=== PATIENT | male | born 1980 | race Two or more races ===

== ENCOUNTER 2025-02-17 13:24 | Emergency (ER) | payer MEDICAID, OTHER ==
[~2025-02-17] VITALS: Ht 172.7 cm; Wt 93.2 kg
[2025-02-17 14:31] LABS: Basophils # (auto) 0.1 10 ^3/uL (0-0.2); Basophils % (auto) 0.6 % (0.0-2.0); Eosinophils # (auto) 0.1 10 ^3/uL (0-0.8); Eosinophils % (auto) 1.3 % (0.0-7.0); Hematocrit 50.7 % (41.0-53.0); Hemoglobin 17.1 g/dL (13.5-17.5); Lymphocytes % (auto) 24.3 % (10.0-50.0); Mean Corpuscular Hemoglobin 29.8 pg (28.0-32.0); Mean Corpuscular Hgb Conc. 33.7 g/dL (32.0-36.0); Mean Corpuscular Volume 88.5 fL (80.0-100.0); Monocytes # (auto) 0.7 10 ^3/uL (0-1.3); Monocytes % (auto) 8.4 % (0.0-12.0); Neutrophils # (auto) 5.3 10 ^3/uL (1.6-8.6); Neutrophils % (auto) 65.4 % (37.0-80.0); Nucleated Red Blood Cells % 0.2 %; Platelet Count (auto) 260 10^3/uL (140-450); Red Blood Cells 5.73 10^6/uL (4.5-5.90); White Blood Cell 8.1 10^3/uL (4.4-10.8)
[2025-02-17 14:45] LABS: Chloride 104 mmol/L (98-107); Potassium 3.8 mmol/L (3.5-5.1); Sodium 139 mmol/L (136-145)
[2025-02-17 14:46] LABS: Anion Gap 11 (5-15); Calcium 9.7 mg/dL (8.7-10.4); Carbon Dioxide 24 mmol/L (20-31)
[2025-02-17 14:51] LABS: BUN/Creatinine Ratio 16.7 (10.0-20.0); Blood Urea Nitrogen 12 mg/dL (9-23); Glucose 180 mg/dL (74-106)
--- NOTE | 2025-02-17 14:58 | ED.PDOC ---
History of Present Illness HPI Comments Mr. Foster, 44-year-old gentleman with past medical history significant for grade 1 obesity, type 2 diabetes mellitus on oral diabetic treatment comes to the ER after a mechanical fall when he tripped this morning while at work and fell down on asphalt with extended left wrist with direct impact having all weight temporarily supported by the rest causing excruciating pain. Patient eventually fell down on the right side of the face that caused mild low laceration on the right lower lip, right nostril has mild epistaxis total blood loss not exiting more than 4 oz roughly. Patient came to the ED dietary from work for pain management and further workup. The patient denies any violence, trauma, similar previous fall, lightheadedness, dizziness, loss of consciousness, nausea, vomiting, headache, bleeding diathesis, or any other focal neurological deficit. The time of presentation patient has 10/10 localized pain with mild swelling and deformity on the left wrist and crusted well healed non actively bleeding lacerations. Past medical history: Grade 1 obesity, type 2 diabetes mellitus. Past surgical history: Denies. Allergies: NKDA, nonallergic to diets. Social history: Denies active smoking, alcohol consumption, or any recreational drugs. Lives at home with family. 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 Medications: Metformin, glipizide that he can remember on the top of his head. PCP: Dr. Rodriguez Comments Mechanical fall, trauma, superficial skin laceration and injury to left wrist. Time Seen by MD: 13:39 Primary Care Provider: Dr. Rodriguez Reviewed Notes: Nurses Notes, Medications, Allergies Allergies: Coded Allergies: NO KNOWN ALLERGIES (Unverified , 02/17/25) Information Source: Patient Mode of Arrival: Ambulatory Severity: Moderate Timing: Minutes Duration: Since onset, Minutes Prehospital treatment: None Past Medical History PAST MEDICAL HISTORY: DM Past Medical History (Other): As above Surgical History (Other): As above Family History Family History (Other): As above, noncontributory Social History Smoker: Non-Smoker Alcohol: Denies ETOH Use Drugs: Denies Drug Use Lives In: Home Constitutional: denies: chills, diaphoresis, fatigue, fever, malaise, sweats, weakness, others EENTM: reports: nose bleeding, others (Mild right twyla facial swelling without any focal neurological deficits); denies: blurred vision, double vision, ear bleeding, ear discharge, ear drainage, ear pain, ear ringing, eye pain, eye redness, hearing loss, mouth pain, mouth swelling, nasal discharge, nose congestion, nose pain, photophobia, tearing, throat pain, throat swelling, voice changes Respiratory: denies: cough, hemoptysis, orthopnea, SOB at rest, shortness of breath, SOB with excertion, stridor, wheezing, others Cardiovascular: denies: chest pain, dizzy spells, diaphoresis, Dyspnea on exertion, edema, irregular heart beat, left arm pain, lightheadedness, palpitat ions, PND, syncope, others Gastrointestinal: denies: abdomen distended, abdominal pain, blood streaked bow els, constipated, diarrhea, dysphagia, difficulty swallowing, hematemesis, melena, nausea, poor appetite, poor fluid intake, rectal bleeding, rectal pain, vomiting, others Genitourinary: denies: burning, dysuria, flank pain, frequency, hematuria, incontinence, penile discharge, penile sore, pain, testicle pain, testicle swelling, urgency, others Neurological: denies: dizziness, fainting, headache, left sided numbness, left sided weakness, numbness, paresthesia, pre-existing deficit, right sided numbness, right sided weakness, seizure, speech problems, tingling, tremors, weakness, others Integumetry: reports: bruises, laceration, wounds; denies: change in color, change in hair/nails, dryness, lesions, lumps, rash, others Allergic/Immunocompromised: denies: Difficulty Healing, Frequent Infections, Hives, Itching, others Hematologic/Lymphatic: denies: anemia, blood clots, easy bleeding, easy bruising, swollen glands, others Endocrine: denies: excessive hunger, excessive sweating, excessive thirst, excessive urination, flushing, intolerance to cold, intolerance to heat, un explained weight gain, unexplained weight loss, others Psychiatric: denies: anxiety, bipolar disorder, depression, hopeless, panic disorder, schizophrenia, sleepless, suicidal, others Physical Exam General Appearance: Mild Distress HEENT: Other (Right lower lip mild laceration well healed, well-formed scab noted. Right nostril has some blood tinges, dried blood but no active bleeding noted. Mild facial edema without redness or tenderness locally.) Neck: Full Range of Motion, Non-Tender, Normal Inspection, Supple Respiratory: Lungs Clear, No Accessory Muscle Use, No Respiratory Distress, Normal Breath Sounds Cardiovascular: No Edema, No Murmur, No Gallop, Normal Peripheral Pulses, Regular Rate/Rhythm Breast Exam: Deferred Gastrointestinal: No Organomegaly, Non Tender (Off starting), Normal Bowel Sounds Genitalia: Deferred Pelvic: Deferred Rectal: Deferred Extremities: Other (Tenderness to the right wrist, loss of range of motion but no distal or proximal to the lesion any neurovascular compromise noted.) Neurologic: Alert, 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 Was a procedure done?: Yes Sedation Sedation?: No Informed consent obtained: Yes Sedation provider statement: As per documentation of Dr. Leong for reduction and splint application. Differential Dx Considerations may include: Mechanical fall, facial trauma, blunt injury to the bilateral upper extremity, wrist fracture of the left side, laceration of the lower lip, epistaxis secondary due to injury, mild blood loss anemia, polytrauma, neurovascular compromise yet to rule out, styloid fracture X-Ray, Labs, Meds, VS Vital Signs Date Time Temp Pulse Resp B/P (MAP) Pulse Ox O2 Delivery O2 Flow Rate FiO2 02/17/25 16:36 98.3 106 20 129/91 (104) 95 98.3 Lab Test 02/17/25 14:23 Range/Units White Blood Count 8.1 4.4-10.8 10^3/uL Red Blood Count 5.73 4.5-5.90 10^6/uL Hemoglobin 17.1 13.5-17.5 g/dL Hematocrit 50.7 41.0-53.0 % Mean Corpuscular Volume 88.5 80.0-100.0 fL Mean Corpuscular Hemoglobin 29.8 28.0-32.0 pg Mean Corpuscular Hemoglobin Concent 33.7 32.0-36.0 g/dL Red Cell Distribution Width 13.0 11.8-14.3 % Platelet Count 260 140-450 10^3/uL Mean Platelet Volume 7.1 6.9-10.8 fL Neutrophils (%) (Auto) 65.4 37.0-80.0 % Lymphocytes (%) (Auto) 24.3 10.0-50.0 % Monocytes (%) (Auto) 8.4 0.0-12.0 % Eosinophils (%) (Auto) 1.3 0.0-7.0 % Basophils (%) (Auto) 0.6 0.0-2.0 % Neutrophils # (Auto) 5.3 1.6-8.6 10 ^3/uL Lymphocytes # (Auto) 2.0 0.4-5.4 10 ^3/uL Monocytes # (Auto) 0.7 0-1.3 10 ^3/uL Eosinophils # (Auto) 0.1 0-0.8 10 ^3/uL Basophils # (Auto) 0.1 0-0.2 10 ^3/uL Nucleated Red Blood Cells 0.2 % Sodium Level 139 136-145 mmol/L Potassium Level 3.8 3.5-5.1 mmol/L Chloride Level 104 98-107 mmol/L Carbon Dioxide Level 24 20-31 mmol/L Anion Gap 11 5-15 Blood Urea Nitrogen 12 9-23 mg/dL Creatinine 0.72 0.700-1.30 mg/dL Glomerular Filtration Rate Calc 116 >90 mL/min BUN/Creatinine Ratio 16.7 10.0-20.0 Serum Glucose 180 H 74-106 mg/dL Calcium Level 9.7 8.7-10.4 mg/dL Total Bilirubin 0.6 0.2-1.0 mg/dL Direct Bilirubin 0.2 <0.3 mg/dL Aspartate Amino Transferase (AST) 18 13-40 U/L Alanine Aminotransferase (ALT) 22 7-40 U/L Alkaline Phosphatase 66 46-116 U/L Total Protein 8.1 5.7-8.2 g/dL Albumin 5.0 H 3.2-4.8 g/dL Images Reviewed?: Images reviewed and evaluated by me Time of 1ST Reevaluation: 15:39 Reevaluation 1ST: Unchanged (Labs unremarkable, no neuro vascular changes. Still has 10/10 pain.) Time of 2ND Reevaluation: 17:26 Reevaluation 2ND: Unchanged (Patient is decided to proceed with closed reduction, with local anesthesia optimum pain management, repeat x-ray and close follow up with the outpatient orthopedics.) Time of 3RD Reevaluation: 17:57 Reevaluation 3RD: Resolved (Pain improved, local infiltrative anesthesia and nerve block with reduction and stabilization done. Red flags and warning signs of neurovascular compromise discussed. Referred to the outpatient orthopedics with Dr. Mckenzie. Short course of analgesics prescribed. Discussed with Dr. Leong.) Consultation: PCP, Other (Orthopedics Dr. Knapp) Patient Education/Counseling: Diagnosis, Treatment, Prognosis, Need For Follow Up Family Education/Counseling: No Family Present Departure 1 Departure Time of Disposition: 18:04 Impression: Primary Impression: Fall against object Additional Impressions: Blunt injury Left wrist fracture Qualified Codes: S62.102A - Fracture of unspecified carpal bone, left wrist, initial encounter for closed fracture Left wrist injury Qualified Codes: S69.92XA - Unspecified injury of left wrist, hand and fin osiel(s), initial encounter Left wrist pain Disposition: 01 HOME / SELF CARE / HOMELESS Condition: Fair Referrals Dr. Saeed orthopedics Referrals: ZI KNAPP MD Additional Instructions: Please follow up with the PCP within 1 week of ED visit and please follow up with Orthopedics closely. As needed pain control. Discussed with Dr. Leong Discharged With: Self Critical Care Note Critical Care Time?: No Stability Stability form required: MAXINE Albarran RESIDENT Feb 17, 2025 14:58
--- NOTE | 2025-02-17 15:27 | DVH ---
CLINICAL INDICATION: fall and trauma TECHNIQUE: XY L WRIST 3+ VIEW XRAY Comparison: None FINDINGS/IMPRESSION: : Displaced and comminuted fracture of the distal radial metaphysis. Displaced fracture of the styloid process of the ulna. Diffuse soft-tissue swelling of the distal forearm.
[2025-02-17 15:41] LABS: Bilirubin, Direct 0.2 mg/dL (<0.3); Bilirubin, Total 0.6 mg/dL (0.2-1.0); Total Protein 8.1 g/dL (5.7-8.2)
[2025-02-17] MEDS ORDERED: OXYC-900 PO (17:49)
[2025-02-17] MEDS: TETANUS-DIPTH-ACEL PERTUSSIS 0.5ML SYR Tdap IM ONE (18:14)
[2025-02-17] MEDS: KETOROLAC TROMETH 30 MG/ML 1ML VIAL IM ONE (18:15)
[2025-02-17] MEDS: HYDROcodone-ACET 10/325MG TAB PO ONE (18:16)
[2025-02-17] MEDS: LIDOCAINE 1% HCL (LOCAL ANESTH.) INJ 20ML MDV IJ ONE (18:16)
--- NOTE | 2025-02-17 18:32 | DVH ---
CLINICAL INDICATION: reduction follow up TECHNIQUE: 3 radiographic views of the left wrist were obtained. Comparison: XY L WRIST 3+ VIEW XRAY on DOS: 02/17/25 FINDINGS/IMPRESSION: Overlying cast material limits evaluation of the bony and soft tissue fine details. Redemonstration o f acute comminuted displaced distal radius fracture in similar slight/slightly worsened anatomic alig nment. Acute displaced fracture of the ulnar styloid in similar anatomic alignment.
[2025-02-17 18:42] VITALS: BP 127/77; PULSE 84; RESP 14; TEMP 98; O2SAT 97
== END 2025-02-17 18:08 | disposition home or self-care (01) ==
LOC: ER 13:42
DX: S52.592A Other fractures of lower end of left radius, initial encounter for closed fracture (principal); S52.612A Displaced fracture of left ulna styloid process, initial encounter for closed fracture; S01.511A Laceration without foreign body of lip, initial encounter; R04.0 Epistaxis; E11.9 Type 2 diabetes mellitus without complications; E66.9 Obesity, unspecified; Z68.31 Body mass index [BMI] 31.0-31.9, adult; W01.0XXA Fall on same level from slipping, tripping and stumbling without subsequent striking against object, initial encounter; Y93.89 Activity, other specified; Y92.89 Other specified places as the place of occurrence of the external cause; Y99.8 Other external cause status
CPT/HCPCS: 25605; 36415; 73100; 73110; 80048; 80076; 85025; 90471; 90715; 96372; 99284; J1885; J2003